=== PATIENT | male | born 1955 | race Caucasian/White ===

== ENCOUNTER → 2025-08-15 08:49 | Outpatient (BNVA) | payer MEDICARE, SELFPAY | PROVIDERS: PCP Family Medicine; Visit Provider Family Medicine | DX: Z13.6 Encounter for screening for cardiovascular disorders (principal); N40.0 Benign prostatic hyperplasia without lower urinary tract symptoms; R73.09 Other abnormal glucose | CPT/HCPCS: 80053; 80061; 83036; 84153; 84439; 84443; 85025 ==